=== PATIENT | male | born 1955 | race Caucasian/White ===

== ENCOUNTER → 2021-04-05 12:47 | Outpatient (BNVA) | payer SELFPAY | PROVIDERS: Visit Provider Nurse Practitioner | DX: R39.9 Unspecified symptoms and signs involving the genitourinary system (principal); N39.0 Urinary tract infection, site not specified | CPT/HCPCS: 81000 ==

== ENCOUNTER → 2021-04-25 11:20 | Outpatient (BNVA) | payer SELFPAY | PROVIDERS: Visit Provider Nurse Practitioner | DX: N39.0 Urinary tract infection, site not specified (principal) | CPT/HCPCS: 81000; 87077; 87086; 87184 ==

== ENCOUNTER → 2021-06-04 09:42 | Outpatient (BNVA) | payer SELFPAY | PROVIDERS: Visit Provider Family Medicine Adult Medicine | DX: R30.9 Painful micturition, unspecified (principal); N40.1 Benign prostatic hyperplasia with lower urinary tract symptoms; N13.8 Other obstructive and reflux uropathy; Z87.440 Personal history of urinary (tract) infections; Z00.00 Encounter for general adult medical examination without abnormal findings | CPT/HCPCS: 80053; 80061; 81003; 82306; 85025; 87077; 87086; 87184; G0103 ==

== ENCOUNTER → 2021-07-03 08:32 | Outpatient (BNVA) | payer SELFPAY | PROVIDERS: PCP Family Medicine Adult Medicine; Visit Provider Urology | DX: N40.1 Benign prostatic hyperplasia with lower urinary tract symptoms (principal); N13.8 Other obstructive and reflux uropathy | CPT/HCPCS: 81003 ==

== ENCOUNTER → 2021-08-16 10:53 | Outpatient (BNVA) | payer SELFPAY | PROVIDERS: PCP Family Medicine Adult Medicine; Visit Provider Urology | DX: N39.0 Urinary tract infection, site not specified (principal); R97.20 Elevated prostate specific antigen [PSA] | CPT/HCPCS: 81003; 84153 ==

== ENCOUNTER 2022-02-21 10:06 | Outpatient (CLI) | payer SELFPAY | END 2022-02-21 10:07 | disposition home or self-care (01) | PROVIDERS: PCP Family Medicine Adult Medicine; Visit Provider Urology | DX: R97.20 Elevated prostate specific antigen [PSA] (principal) | CPT/HCPCS: 81003; 84153 ==

== ENCOUNTER 2022-08-16 14:08 | Outpatient (CLI) | payer SELFPAY ==
[2022-08-16 15:06] LABS: Prostate Specific AG Urology 4.75 ng/mL (0-4)
== END 2022-08-16 14:09 | disposition home or self-care (01) ==
PROVIDERS: PCP Family Medicine Adult Medicine; Visit Provider Urology
DX: R97.20 Elevated prostate specific antigen [PSA] (principal)
CPT/HCPCS: 36415; 84153

== ENCOUNTER 2023-02-18 09:47 | Outpatient (CLI) | payer MEDICARE, SELFPAY | END 2023-02-18 09:48 | disposition home or self-care (01) | PROVIDERS: PCP Family Medicine Adult Medicine; Visit Provider Urology | DX: R97.20 Elevated prostate specific antigen [PSA] (principal) | CPT/HCPCS: 36415; 84153 ==

== ENCOUNTER 2023-04-16 07:47 | Outpatient (CLI) | payer MEDICARE, SELFPAY ==
--- NOTE | 2023-04-16 08:00 | MR_ITS ---
WS: [id number] MRI LEFT KNEE HISTORY: chronic left knee pain/weakness COMPARISON: None available. Anterior cruciate ligament: Increased T2 signal throughout the central ACL. Majority of the ACL fiber s are intact. Posterior cruciate ligament: Intact. Medial collateral ligament: Intact. Posterior lateral corner structures: Intact. Medial menisci: Horizontal tear posterior horn extends to the inferior articular surface. There is ad ditional surface fraying along the intra-articular surface of the posterior horn. Anterior horn is no rmal. Lateral meniscus: Horizontal tear in the posterior horn extends to the inferior articular surface. Th ere is additional increased signal throughout a large portion of the posterior horn consistent with a complex tear. Towards the meniscal root there is additional tear which extends to the superior artic ular surface. Anterior horn is normal. Extensor mechanism: Distal quadriceps tendon and patellar tendons are intact. Fluid and soft tissue: Small joint effusion. No Wills's cyst. Osseous and articular structures: Patellofemoral compartment: Normal. Medial compartment: Mild narrowing of the medial compartment. Surface fraying along the surface of th e cartilage along the weightbearing surface of the femoral condyle and tibial plateau. No marrow stephen a or fracture. Lateral compartment: Minimal narrowing. Mild chondromalacia. There is a focal area of chondromalacia along the weightbearing surface of the tibial plateau. No marrow edema or fracture. IMPRESSION: 1. Horizontal tear posterior horn medial meniscus. 2. Complex tear involving the posterior horn lateral meniscus. There is a horizontal tear extending t o the inferior tickler surface. Additional tear towards the meniscal root with extension to the super ior tickler surface. Large amount of abnormal signal throughout majority of the posterior meniscus. 3. intrasubstance degeneration throughout the ACL. Partial tear is not excluded in the central ligame nt. There is no full-thickness tear. 4. Mild narrowing of the medial and lateral compartments with mild diffuse chondromalacia.
== END 2023-04-16 07:48 | disposition home or self-care (01) ==
LOC: RAD 07:48
PROVIDERS: PCP Family Medicine Adult Medicine; Visit Provider Family Medicine Adult Medicine
DX: S83.272A Complex tear of lateral meniscus, current injury, left knee, initial encounter (principal); X58.XXXA Exposure to other specified factors, initial encounter; M94.262 Chondromalacia, left knee; G89.29 Other chronic pain; M19.90 Unspecified osteoarthritis, unspecified site; R53.1 Weakness
CPT/HCPCS: 73721

== ENCOUNTER → 2023-05-20 11:00 | Outpatient (BNVA) | payer MEDICARE, SELFPAY | PROVIDERS: PCP Family Medicine Adult Medicine; Referring Provider Family Medicine Adult Medicine; Visit Provider Student in an Organized Health Care Education/Training Program | DX: S83.207A Unspecified tear of unspecified meniscus, current injury, left knee, initial encounter; S83.282A Other tear of lateral meniscus, current injury, left knee, initial encounter; S83.512A Sprain of anterior cruciate ligament of left knee, initial encounter; X50.9XXA Other and unspecified overexertion or strenuous movements or postures, initial encounter | CPT/HCPCS: 73560; 73565; 99204 ==

== ENCOUNTER → 2023-06-17 08:09 | Outpatient (BNVA) | payer MEDICARE, SELFPAY | PROVIDERS: PCP Family Medicine Adult Medicine; Visit Provider Student in an Organized Health Care Education/Training Program | DX: S83.282A Other tear of lateral meniscus, current injury, left knee, initial encounter (principal); S83.512A Sprain of anterior cruciate ligament of left knee, initial encounter; S83.242A Other tear of medial meniscus, current injury, left knee, initial encounter; X58.XXXA Exposure to other specified factors, initial encounter | CPT/HCPCS: 99214 ==

== ENCOUNTER 2023-06-18 08:47 | Day surgery (SDC) | payer MEDICARE, SELFPAY ==
[2023-06-18] VITALS (9 sets, daily range): BP systolic 101–151; BP diastolic 52–75; PULSE 54–62; RESP 16–18; TEMP 36.1–36.2; O2SAT 95–99; BMI 25.1
--- NOTE | 2023-06-18 08:59 | W.PM.OPSUD ---
Surgery/Procedure H&P Update DATE OF PROCEDURE: June 18, 2023 DATE H&P PERFORMED: 06/17/23 H&P UPDATE INFORMATION: I have reviewed H&P completed within last 30 days, I have examined patient prior to procedure and No changes to prior documentation PREOP DIAGNOSIS: Left knee medial and lateral meniscus tears and partial ACL tear PRIMARY INDICATION FOR PROCEDURE: Left knee medial and lateral meniscus tears and partial ACL tear PLANNED PROCEDURE: Operation Date: 06/18/23 10:35 Proposed Procedures p Knee Arthroscopy w/partial Medial versus repair and partial Lateral Menisectomy versus repair & ACL debridement(Left) - Cain Cardona DO
[2023-06-18] MEDS: scopolamine 1.5 Patch 1 PATCH TRANSDERMA (09:17)
[2023-06-18] MEDS: ketorolac 30 mg/mL INJ IVP (09:17)
[2023-06-18] MEDS: acetaminophen 1,000 MG/100 ML PIGGYBACK 400 MG IV (09:18)
[2023-06-18] MEDS: sodium chloride 0.9% 1,000 ML 30 ML IV (09:23)
--- NOTE | 2023-06-18 09:52 | ANES.PREANE2 ---
Pre-Anesthetic Assessment Height/Weight: Height 1.78 m Weight 79.379 kg Temp Pulse Resp BP Pulse Ox O2 Del Method 97.0 F L 61 18 151/75 96 Room Air 06/18/23 08:58 06/18/23 08:58 06/18/23 08:58 06/18/23 09:17 06/18/23 08:58 06/18/23 09:34 Preop Diagnosis: Left knee medial and lateral meniscus tears and partial ACL tear Operation Date: 06/18/23 10:35 Proposed Procedures p Knee Arthroscopy w/partial Medial versus repair and partial Lateral Menisectomy versus repair & ACL debridement(Left) - Cain Cardona, Familial anesthetic complications: none Was Beta Adore taken within 24 hours: N/A Was Clonidine taken within 24 hours: N/A Last intake: Intake Last Liquid Date 06/17/23 Last Liquid Time 20:00 Last Solid Date 06/17/23 Last Solid Time 20:00 Social No alcohol and No tobacco Exam alert, oriented x 3, clear to auscultation bilaterally and regular rate & rhythm Airway Submandibular: within normal limits Cervical ROM: within normal limits Mallampati: Class II Dentition: caps BPH Musc/skel Osteoarthritis/DJD Neuropsych Headache Anesthetic Plan ASA status: 2 Anesthesia: General and Regional (specify below) (left adductor blk) Medications/Allergies Home Medications Medication Instructions Recorded Confirmed Last Taken Type acetaminophen 325 mg tablet 325 mg PO QID PRN t-7 06/04/21 06/17/23 06/15/23 History (Tylenol) meloxicam 7.5 mg tablet 7.5 mg PO DAILY arthritis #90 tabs 03/18/23 06/17/23 06/11/23 Rx tamsulosin 0.4 mg capsule 0.4 mg PO DAILY BPH #90 caps 03/18/23 06/17/23 06/17/23 Rx zolpidem 10 mg tablet 10 mg PO ONCE PRN insomnia #30 tabs 04/18/23 06/17/23 06/17/23 Rx aspirin 81 mg capsule 81 mg PO BID 14 days #28 caps 06/18/23 Unknown Rx hydrocodone 5 mg-acetaminophen 325 1 tab PO Q6H PRN pain 5 days #20 06/18/23 Unknown Rx mg tablet tabs ondansetron 4 mg disintegrating 4 mg PO Q8H PRN nausea and 06/18/23 Unknown Rx tablet vomiting 3 days #9 tabs Allergies Allergy/AdvReac Type Severity Reaction Status Date / Time No Known Allergies Allergy Verified 06/17/23 08:21 Current Medications Generic Name Dose Route Start Last Admin Trade Name Freq PRN Reason Stop Dose Admin Sodium Chloride 1,000 mls @ 30 mls/hr 06/18/23 09:00 06/18/23 09:23 Sodium Chloride 0.9% IV 06/19/23 08:59 30 mls/hr .Q24H MARIVEL Administration PFSH Anesthesia Medical History Tear of meniscus of left knee Insomnia Chronic pain of left knee Migraine Wills's cyst of knee BPH w urinary obs/LUTS Encounter for wellness examination Hx of recurrent urinary tract infection Osteoarthritis Family History Father , at age 94 Heart disease Mother , AT AGE 90 Stroke Social History Smoking and tobacco/nicotine status: never used tobacco/nicotine Alcohol intake: current Alcohol intake frequency: holidays/special occasions only Marital status: Current occupational status: retired Data Anesthesia Cardiac Studies: No Data to Display
[2023-06-18] MEDS: ceFAZolin 2,000 MG in sodium chloride 0.9% (plus) 50 ML 100 MG IV (10:27)
--- NOTE | 2023-06-18 11:00 | ANES.PROC ---
Anesthesia Procedures Procedure/Date: 06/18/23 Nerve Block ^: Nerve Block 1: Main Anesthesia: general anesthesia Time Out Performed: Yes Consent: requested by attending/covering physician, from patient, risks and benefits reviewed and patient agrees to proceed Nerve block location: adductor canal (left) Anesthesia monitors applied: pulse oximetry, EKG, BP cuff and oxygen Nerve block position: supine Anesthetic Used: ropivicaine 0.5% Amount of anesthesia used (mL): 20 Ultrasound used to: recognize landmarks Nerve Stimulator Used?: No Interscalene/Femoral BLK: 2 stimuplex 22 g needle used for position and inplane approach Injection: neg aspiration of heme Patient Tolerated Procedure: well Complications: none
--- NOTE | 2023-06-18 11:22 | P.BOP_ITS ---
Date of Procedure: 06/18/2022 Surgeon: Cain Cardona DO Land Development Manager(s): None Procedure(s) performed: Left knee diagnostic and surgical arthroscopy with partial medial meniscectomy Left knee diagnostic and surgical arthroscopy with partial lateral meniscectomy Left knee diagnostic and surgical arthroscopy with ACL debridement Left knee diagnostic and surgical arthroscopy with medial compartment chondroplasty Left knee diagnostic and surgical arthroscopy with extensive synovectomy (medial, lateral, patellofemoral compartments Findings of the procedure(s): Patient had medial and lateral meniscus tears as well as partial tearing of the ACL as well as chondromalacia noted procedure went as planned without complications Estimated blood loss: 2 mL Specimen(s) removed: None Post-operative diagnosis: Left knee medial and lateral meniscus tears as well as partial tear of the ACL and extensive synovitis and
--- NOTE | 2023-06-18 11:23 | P.OP_ITS ---
Operative Report Date of procedure: June 18, 2023 Surgeon: Cain Cardona DO Procedure: Preoperative diagnosis: Left knee medial and lateral meniscus tear as well as partial tearing ACL Post-op diagnosis: left?knee?medial meniscus tear Left knee lateral meniscus tear Left knee partial ACL tear left?knee?extensive synovitis left?knee?Medial chondromalacia Procedure done: left?knee?diagnostic and surgical arthroscopy partial medial meniscectomy Left knee diagnostic and surgical arthroscopy partial lateral meniscectomy left?knee?diagnostic and surgical arthroscopy with extensive synovectomy of the medial lateral and patellofemoral compartments left?knee?diagnostic and surgical arthroscopy with medial compartment chondroplasty Left knee diagnostic and surgical arthroscopy ACL debridement Surgeon: Cain Cardona DO Estimated blood loss: 5 Tourniquet: No tourniquet was used IV fluids: See anesthesia record Complications: None Findings: See operative report narrative Condition: stable Disposition: same day Brief History: Patient is a 67-year-old male with left?knee?pain.? Patient has failed conservative treatment who has been worked up for left??knee?pain in the outpatient setting. MRI findings consistent with tear of the medial and lateral meniscus. talked in the office about treatment options patient would like to proceed with a left?knee?diagnostic and surgical arthroscopy with partial medial and lateral meniscectomy and possible ACL debridement.? Patient understand the ins and outs of the procedure the risk benefits complication alternatives to treatment options.? Understanding risk of surgery they agree to proceed with surgical intervention.? Patient understand this may not provide patient with complete symptomatic relief of? pain as patient does have some underlying arthritis.? Understanding this and patient agree to proceed with surgical intervention all questions answered. Procedure: Patient seen and evaluated in the preoperative holding area.? Consent was reviewed and signed with patient.? Correct extremity was then marked.? Patient seen evaluated Anesthesia Department once cleared for surgery patient was taken back to the operative suite.? Patient was transported onto the OR table in supine position.? All bony prominences well-padded patient was appropriate secured to the bed.? Once appropriately anesthetized a nonsterile tourniquet was applied to the left thigh.? The left lower extremity was then prepped and draped in standard orthopedic fashion.? Final timeout performed.? Patient received appropriate preoperative antibiotics. Patient received local anesthetic of lidocaine with epinephrine into the joint as well as around the portal sites.? No tourniquet was inflated A standard 2 portal vertical incision diagnostic and surgical arthroscopy of the left?knee?was performed in standard fashion.? Small stab incision made in the inferolateral portal introduced trocar and arthroscope into the suprapatellar pouch.? Suprapatellar pouch was subsequently visualized and found to have significant synovitis but no loose bodies.? Patient had noticeable significant inflamed infrapatellar fat pad and thickening hypertrophic within the pa tellofemoral compartment.? ?The medial gutter was free of loose bodies I then introduced the arthroscope into the medial compartment.? Within the medial compartment I then established my inferior medial working portal utilizing spinal needle outside in technique.? Once established I then visualized our articular cartilage of the medial compartment with a valgus stress.? Patient was found to have grade 2-3 chondromalacia throughout the medial compartment.? Next I inspected the meniscus.? With an arthroscopic probe was utilized to visual? all aspects of the meniscus.? Meniscal root was found to be intact.? Meniscus was found to be torn at the body to posterior horn junction.? I then subsequently introduced a basket forceps as well as arthroscopic shaver to perform a partial medial meniscectomy to stable meniscal tissue and then utilized a thermal wand to anneal the edges.? Next, I then performed a synovectomy of the medial compartment.? Given patient's chondromalacia there was areas of unstable articular cartilage and I subsequently performed a chondroplasty with arthroscopic shaver and thermal wand.? This completed medial compartment work. Next a introduced the arthroscope to the intercondylar notch.? PCL was intact, partial tearing of the ACL was noted utilize arthroscopic shaver and thermal wand to debride the ACL.. patient had significant thickening of the infrapatellar fat pad spanning into the medial and lateral compartments.? I then performed an extensive synovectomy with the arthroscopic shaver of the patellofemoral medial and lateral compartments as well as the intercondylar notch. Advance the?scope?into the retrocruciate space and no loose bodies were found. Next I introduced the arthroscope into the lateral compartment the lateral compartment was found to have grade 2 chondromalacia.? Lateral meniscus was found complex tear posterior horn. Utilized arthroscopic shaver basket forceps and thermal wand to perform partial meniscectomy to stable meniscal tissue. The root was intact.? Given the grade II chondromalacia there is no unstable cartilage pieces to perform chondroplasty.? This completed my work of the lateral compartment and then performed a synovectomy of the lateral compartment.? Next of the arthroscope was placed into the lateral gutter and this was free of loose bodies.? Finally I reintroduced the arthroscope into the patellofemoral compartment.? The patellofemoral was found to have grade 2 chondromalacia of the patellofemoral compartment.? At this point I utilized arthroscopic shaver as well as thermal wand to perform extensive synovectomy of the patellofemoral compartment. This completed my work of the patellofemoral space.? I then switch my portal sites to the medial working portal.? Completed the rest of my synovectomy and the rest of my examination arthroscopy was normal. All fluid was suctioned from the joint.? ?All instruments were withdrawn.? Portal sites were closed with interrupted nylon suture.? portal sites were then covered with with Xeroform 4 x 4's ABD Curlex and Timothy wrap.? Patient was then subsequently awakened from anesthesia and taken to PACU in stable condition. Disposition: Patient taken to PACU in stable condition recovering well.? Will receive appropriate discharge structure as well as pain medication postoperatively as well as? DVT prophylaxis.we will have patient follow-up with us in the office in 2 weeks.? We will weightbearing as tolerated to the left lower extremity.? Patient understands and agrees with current plan.? All questions answered.
--- NOTE | 2023-06-18 16:30 | ANE.PACU2 ---
Inpatient post-anesthesia follow up: Airway intact: Yes Vital signs: Temperature 97.2 F Pulse Rate 54 Respiratory Rate 18 Blood Pressure 101/55 Pulse Oximetry 98 Oxygen Delivery Me thod Room Air Oxygen Flow Rate 6 Fraction of Inspir ed Oxygen Hydration adequate: Yes Nausea and vomiting: No Pain level: 2 Mental status: Baseline
== END 2023-06-18 12:30 | disposition home or self-care (01) ==
PROVIDERS: PCP Family Medicine Adult Medicine; Visit Provider Student in an Organized Health Care Education/Training Program
PROC: (CPT 29870; principal; 2023-06-18 10:25)
DX: S83.242A Other tear of medial meniscus, current injury, left knee, initial encounter (principal); S83.282A Other tear of lateral meniscus, current injury, left knee, initial encounter; S83.512A Sprain of anterior cruciate ligament of left knee, initial encounter; X58.XXXA Exposure to other specified factors, initial encounter; M65.9 Synovitis and tenosynovitis, unspecified; M94.262 Chondromalacia, left knee; M19.90 Unspecified osteoarthritis, unspecified site; N40.1 Benign prostatic hyperplasia with lower urinary tract symptoms; N13.8 Other obstructive and reflux uropathy
CPT/HCPCS: 29876; 29880; J0131; J0690; J1100; J1885; J2405; J2704; J2795; J3010; J7030

== ENCOUNTER → 2023-07-03 09:48 | Outpatient (BNVA) | payer MEDICARE, SELFPAY | PROVIDERS: PCP Family Medicine Adult Medicine; Visit Provider Physician Assistant | DX: Z98.890 Other specified postprocedural states (principal) | CPT/HCPCS: 99024 ==

== ENCOUNTER → 2023-07-08 13:25 | Outpatient (BNVA) | payer MEDICARE, SELFPAY | PROVIDERS: PCP Family Medicine Adult Medicine; Visit Provider Family Medicine Adult Medicine | DX: N40.1 Benign prostatic hyperplasia with lower urinary tract symptoms (principal); N13.8 Other obstructive and reflux uropathy; G43.909 Migraine, unspecified, not intractable, without status migrainosus; I10 Essential (primary) hypertension; R03.0 Elevated blood-pressure reading, without diagnosis of hypertension; R53.83 Other fatigue | CPT/HCPCS: 80053; 80061; 84403; 84443; 85025 ==

== ENCOUNTER → 2023-07-15 13:25 | Outpatient (BNVA) | payer MEDICARE, SELFPAY | PROVIDERS: PCP Family Medicine Adult Medicine; Visit Provider Physician Assistant | DX: M79.641 Pain in right hand; M79.642 Pain in left hand; M18.2 Bilateral post-traumatic osteoarthritis of first carpometacarpal joints | CPT/HCPCS: 20600; 73130; 99213; J1040; J3490 ==

== ENCOUNTER → 2023-08-06 08:17 | Outpatient (BNVA) | payer MEDICARE, SELFPAY | PROVIDERS: PCP Family Medicine Adult Medicine; Visit Provider Surgery | DX: Z12.11 Encounter for screening for malignant neoplasm of colon (principal); R10.9 Unspecified abdominal pain; K59.00 Constipation, unspecified | CPT/HCPCS: 99203 ==

== ENCOUNTER 2023-09-03 06:08 | Day surgery (SDC) | payer MEDICARE, SELFPAY ==
[2023-09-03 06:25] VITALS: BP 101/63; PULSE 65; RESP 18; TEMP 36.6; O2SAT 99; BMI 25.1
--- NOTE | 2023-09-03 06:30 | P.HPUD_ITS ---
Surgery/Procedure H&P Update DATE OF PROCEDURE: September 03, 2023 DATE H&P PERFORMED: 08/06/23 H&P UPDATE INFORMATION: I have reviewed H&P completed within last 30 days, I have examined patient prior to procedure, No changes to prior documentation and [place] is in [facility] [place] indicated PLANNED PROCEDURE: Operation Date: 09/03/23 07:15 Proposed Procedures p 49789 colon G0121 screen colon A risk Z12.11(Not Applicable) - John Balbuena MD
[2023-09-03] MEDS: sodium chloride 0.9% 1,000 ML 30 ML IV (06:37)
--- NOTE | 2023-09-03 06:55 | ANES.PREANE2 ---
Pre-Anesthetic Assessment Height/Weight: Height 1.78 m Weight 79.379 kg Temp Pulse Resp BP Pulse Ox O2 Del Method 97.8 F 65 18 101/63 99 Room Air 09/03/23 06:25 09/03/23 06:25 09/03/23 06:25 09/03/23 06:25 09/03/23 06:25 09/03/23 06:25 Operation Date: 09/03/23 07:15 Proposed Procedures p 24271 colon G0121 screen colon A risk Z12.11(Not Applicable) - John Balbuena MD Familial anesthetic complications: None Was Beta Adore taken within 24 hours: N/A Was Clonidine taken within 24 hours: N/A Last intake: Intake Last Liquid Date 09/02/23 Last Liquid Time 22:00 Last Solid Date 09/01/23 Last Solid Time 22:00 Social No alcohol and No tobacco Exam alert, oriented x 3, clear to auscultation bilaterally and regular rate & rhythm Airway Mallampati: Class I Dentition: partials Anesthetic Plan ASA status: 1 Anesthesia: MAC Risk of > 500 ml blood loss (7ml/kg in children): No Medications/Allergies Home Medications Medication Instructions Recorded Confirmed Last Taken Type meloxicam 7.5 mg tablet 7.5 mg PO DAILY arthritis #90 tabs 03/18/23 09/03/23 08/27/23 Rx tamsulosin 0.4 mg capsule 0.4 mg PO DAILY BPH #90 caps 03/18/23 09/03/23 09/01/23 Rx zolpidem 10 mg tablet 10 mg PO ONCE PRN insomnia #30 tabs 06/24/23 09/03/23 2 Days Ago Rx ~08/30/23 Allergies Allergy/AdvReac Type Severity Reaction Status Date / Time No Known Allergies Allergy Verified 09/03/23 06:24 Current Medications Generic Name Dose Route Start Last Admin Trade Name Freq PRN Reason Stop Dose Admin Sodium Chloride 1,000 mls @ 30 mls/hr 09/03/23 06:15 09/03/23 06:37 Sodium Chloride 0.9% IV 09/04/23 06:14 30 mls/hr .Q24H MARIVEL Administration PFSH Anesthesia Medical History Colon cancer screening Fatigue Elevated blood pressure reading Hypertension Tear of meniscus of left knee Insomnia Chronic pain of left knee Migraine Wills's cyst of knee BPH w urinary obs/LUTS Encounter for wellness examination Hx of recurrent urinary tract infection Osteoarthritis Family History Father , at age 94 Heart disease Mother , AT AGE 90 Stroke Social History Smoking and tobacco/nicotine status: never used tobacco/nicotine Alcohol intake: current Alcohol intake frequency: holidays/special occasions only Marital status: Current occupational status: retired Data Anesthesia Cardiac Studies: No Data to Display
[2023-09-03 08:03] VITALS: BP 110/56; PULSE 51; RESP 14; TEMP 36.1; O2SAT 100
[2023-09-03 08:10] VITALS: BP 116/69; PULSE 52; RESP 16; O2SAT 98
--- NOTE | 2023-09-03 08:40 | ANE.PACU2 ---
Inpatient post-anesthesia follow up: Airway intact: Yes Vital signs: Temperature 97.0 F Pulse Rate 52 Respiratory Rate 16 Blood Pressure 116/69 Pulse Oximetry 98 Oxygen Delivery Me thod Room Air Oxygen Flow Rate 3 Fraction of Inspir ed Oxygen Hydration adequate: Yes Nausea and vomiting: No Pain level: 1 Mental status: Baseline
== END 2023-09-03 08:40 | disposition home or self-care (01) ==
PROVIDERS: PCP Family Medicine Adult Medicine; Visit Provider Surgery
PROC: 0DJD8ZZ Inspection of Lower Intestinal Tract, Via Natural or Artificial Opening Endoscopic (ICD-10-PCS; CPT 45378; principal; 2023-09-03 07:15)
DX: Z12.11 Encounter for screening for malignant neoplasm of colon (principal); D12.8 Benign neoplasm of rectum; I10 Essential (primary) hypertension; N40.1 Benign prostatic hyperplasia with lower urinary tract symptoms; N13.8 Other obstructive and reflux uropathy
CPT/HCPCS: 45380; 45385; 88305; J2704; J7030

== ENCOUNTER → 2023-09-17 09:02 | Outpatient (BNVA) | payer MEDICARE, SELFPAY | PROVIDERS: PCP Family Medicine Adult Medicine; Visit Provider Surgery | DX: Z12.11 Encounter for screening for malignant neoplasm of colon (principal) | CPT/HCPCS: 99024; 99212 ==

== ENCOUNTER 2023-10-06 13:28 | Outpatient (CLI) | payer MEDICARE, SELFPAY | END 2023-10-06 13:29 | disposition home or self-care (01) | LOC: LAB 13:30 | PROVIDERS: PCP Family Medicine Adult Medicine; Visit Provider Urology | DX: R97.20 Elevated prostate specific antigen [PSA] (principal) | CPT/HCPCS: 36415; 84153 ==

== ENCOUNTER → 2023-10-21 09:44 | Outpatient (BNVA) | payer MEDICARE, SELFPAY | PROVIDERS: PCP Family Medicine Adult Medicine; Visit Provider Surgery | DX: K40.90 Unilateral inguinal hernia, without obstruction or gangrene, not specified as recurrent (principal) | CPT/HCPCS: 99214 ==

== ENCOUNTER 2023-11-17 08:20 | Day surgery (SDC) | payer MEDICARE, SELFPAY ==
[2023-11-17] VITALS (11 sets, daily range): BP systolic 107–143; BP diastolic 54–70; PULSE 56–65; RESP 12–18; TEMP 36.2–36.6; O2SAT 95–100; BMI 25.1
--- NOTE | 2023-11-17 08:58 | P.HPUD_ITS ---
Surgery/Procedure H&P Update DATE OF PROCEDURE: November 17, 2023 DATE H&P PERFORMED: 10/21/23 H&P UPDATE INFORMATION: I have reviewed H&P completed within last 30 days, I have examined patient prior to procedure, No changes to prior documentation and H&P is in [facility] [place] on date indicated PLANNED PROCEDURE: Operation Date: 11/17/23 09:55 Proposed Procedures p Laparoscopic Inguinal Hernia Repair with mesh, possible open(Right) - John Balbuena MD
[2023-11-17] MEDS: sodium chloride 0.9% 1,000 ML 30 ML IV (09:02)
--- NOTE | 2023-11-17 10:15 | ANES.PREANE2 ---
Pre-Anesthetic Assessment Height/Weight: Height 1.78 m Weight 79.379 kg Temp Pulse Resp BP Pulse Ox O2 Del Method 97.8 F 56 L 18 143/70 98 Room Air 11/17/23 08:40 11/17/23 08:40 11/17/23 08:40 11/17/23 08:40 11/17/23 08:40 11/17/23 08:40 Operation Date: 11/17/23 09:55 Proposed Procedures p Laparoscopic Inguinal Hernia Repair with mesh, possible open(Right) - John Balbuena MD Familial anesthetic complications: None Was Beta Adore taken within 24 hours: N/A Was Clonidine taken within 24 hours: N/A Last intake: Intake Last Liquid Date 11/16/23 Last Liquid Time 19:00 Last Solid Date 11/16/23 Last Solid Time 19:00 Social No alcohol and No tobacco Exam alert, oriented x 3, clear to auscultation bilaterally and regular rate & rhythm Airway Mallampati: Class II Dentition: caps and partials CV/HEM Hypertension Anesthetic Plan ASA status: 1 Anesthesia: General Risk of > 500 ml blood loss (7ml/kg in children): No Medications/Allergies Home Medications Medication Instructions Recorded Confirmed Last Taken Type meloxicam 7.5 mg tablet 7.5 mg PO DAILY arthritis #90 tabs 03/18/23 11/17/23 11/14/23 Rx tamsulosin 0.4 mg capsule 0.4 mg PO DAILY BPH #90 caps 03/18/23 11/17/23 11/16/23 Rx zolpidem 10 mg tablet 10 mg PO ONCE PRN insomnia #30 tabs 06/24/23 11/17/23 11/14/23 Rx Allergies Allergy/AdvReac Type Severity Reaction Status Date / Time No Known Allergies Allergy Verified 11/14/23 12:25 Current Medications Generic Name Dose Route Start Last Admin Trade Name Freq PRN Reason Stop Dose Admin Sodium Chloride 1,000 mls @ 30 mls/hr 11/17/23 08:30 11/17/23 09:02 Sodium Chloride 0.9% IV 11/18/23 08:29 30 mls/hr .Q24H MARIVEL Administration PFSH Anesthesia Medical History Inguinal hernia of right side without obstruction or gangrene Colon cancer screening Fatigue Elevated blood pressure reading Hypertension Tear of meniscus of left knee Insomnia Chronic pain of left knee Migraine Wills's cyst of knee BPH w urinary obs/LUTS Encounter for wellness examination Hx of recurrent urinary tract infection Osteoarthritis Family History Father , at age 94 Heart disease Mother , AT AGE 90 Stroke Social History Smoking and tobacco/nicotine status: never used tobacco/nicotine Alcohol intake: current Alcohol intake frequency: holidays/special occasions only Marital status: Current occupational status: retired Data Anesthesia Cardiac Studies: No Data to Display
[2023-11-17] MEDS: ceFAZolin 2,000 MG in sodium chloride 0.9% (plus) 50 ML 100 MG IV (11:17)
[2023-11-17] MEDS: BUPivacaine 0.25% INJ 10 mL INJECTION (12:03)
[2023-11-17] MEDS: lidocaine-epi 1% 20 mL INJ INJECTION (12:04)
--- NOTE | 2023-11-17 12:42 | P.OP_ITS ---
Operative Report Date of procedure: November 17, 2023 Pre-op diagnosis: Right inguinal hernia Post-op diagnosis: Same Post-op findings: Right inguinal hernia indirect, a small lipoma of the cord Procedure done: Laparoscopic repair of right inguinal hernia Implants: Large right-sided 3D max mesh Surgeon: John Balbuena MD Mexican Food Cook: MICHELLE OR Staff Estimated blood loss: 5 Complications: None apparent Brief History: 67-year-old male who presents to my office with a right inguinal hernia, after discussion of all risk and benefits as documented in my preop note with side to proceed with laparoscopic possible open repair. Procedure: Patient was brought into the OR, he was placed in a supine position. General anesthesia was given. The abdomen was prepped and draped in the usual sterile fashion. Timeout was conducted. 1.5 cm infraumbilical incision was made, the incision was deepened until the right rectus sheath was identified. The right rectus sheath was opened with electrocautery, the muscle was then retracted laterally giving access to the retrorectus space. A Spacemaker was advanced in the retrorectus space to the level of the pubic bone, this was inflated under direct visualization developing the preperitoneal space. Spacemaker was then replaced by a 12 mm balloon trocar. Additional 5 mm balloon trocars were placed in the suprapubic and infraumbilical positions. Then proceeded to develop the preperitoneal space, the pubic bone was completely exposed as well as Ty's, identified anatomic landmarks and then I proceeded with a lateral dissection of the space of Borgess, once the space was completely dissected I placed my attention to the cord structures and hernia sac. A large hernia sac was identified on the right side and was dissected from the cord structures and reduced. After reduction of the sac small lipoma of the cord was also then defied and reduced. Critical view of safety of the myopectineal orifice was achieved. A large side 3D max mesh was then inserted in the preperitoneal space and positioned against the abdominal wall covering the direct indirect and femoral spaces. This was fixed to the Ty's ligament with 1 tack. The space was desufflated under direct visualization ensuring that the mesh was located in an adequate position. Trocars were removed. The umbilical trocar site wound was closed in layers using #0 Vicryl to the anterior rectus sheath, #3-0 Vicryl for the subcutaneous tissue and then the skin of all the wounds were closed with 4 Monocryl and Dermabond was applied. At the end of the procedure all counts were correct, the patient tolerated well the procedure and was transferred to the PACU in stable condition.
[2023-11-17] MEDS: oxyCODONE 5 mg IR Tab/Cap PO (13:47)
--- NOTE | 2023-11-17 14:25 | ANE.PACU2 ---
Inpatient post-anesthesia follow up: Airway intact: Yes Vital signs: Temperature 97.2 F Pulse Rate 57 Respiratory Rate 16 Blood Pressure 117/61 Pulse Oximetry 95 Oxygen Delivery Me thod Room Air Oxygen Flow Rate 6 Fraction of Inspir ed Oxygen Hydration adequate: Yes Nausea and vomiting: No Pain level: 1 Mental status: Baseline
== END 2023-11-17 14:27 | disposition home or self-care (01) ==
PROVIDERS: PCP Family Medicine Adult Medicine; Visit Provider Surgery
PROC: (CPT 49650; principal; 2023-11-17 09:45)
DX: K40.90 Unilateral inguinal hernia, without obstruction or gangrene, not specified as recurrent (principal); D17.6 Benign lipomatous neoplasm of spermatic cord; I10 Essential (primary) hypertension; N40.1 Benign prostatic hyperplasia with lower urinary tract symptoms; N13.8 Other obstructive and reflux uropathy
CPT/HCPCS: 49505; 51702; C1781; J0690; J1100; J1885; J2405; J2704; J2710; J3010; J3490; J7030

== ENCOUNTER → 2023-12-03 10:12 | Outpatient (BNVA) | payer MEDICARE, SELFPAY | PROVIDERS: PCP Family Medicine Adult Medicine; Visit Provider Surgery | DX: K40.90 Unilateral inguinal hernia, without obstruction or gangrene, not specified as recurrent (principal); Z98.890 Other specified postprocedural states | CPT/HCPCS: 99024 ==

== ENCOUNTER 2024-05-27 16:20 | Outpatient (CLI) | payer MEDICARE, SELFPAY ==
[2024-05-27 17:26] LABS: Basophils % 0.5 %; Eosinophils # 0.2 10^3/uL (0.0-0.8); Eosinophils % 3.1 %; Hematocrit 41.3 % (37-53); Lymphocytes # 1.7 10^3/uL (0.8-4.8); Lymphocytes % 26.9 %; Mean Corpuscular HGB Conc 35.1 g/dL (30-55); Mean Corpuscular Hemoglobin 29.9 pg (27-33); Mean Corpuscular Volume 85.2 fl (82-101); Mean Platelet Volume 11.3 fL (7.4-10.4); Monocytes # 0.6 10^3/uL (0.2-0.9); Monocytes % 9.3 %; Neutrophils # 3.89 10^3/uL (1.8-7.7); Nucleated Red Blood Cells % 0 %; Platelet Count 171 10^3/cmm (157-399); Red Blood Count 4.85 10^6/uL (3.85-5.65); Red Cell Distribution Width 11.7 % (12.1-15.1); White Blood Count 6.47 10^3/uL (3.29-11.43)
[2024-05-27 18:52] LABS: 25 Hydroxy Vitamin D 50 ng/mL (30-100); Alanine Aminotransferase 18 U/L (0-41); Albumin Level 4.6 g/dL (3.5-5.2); Alkaline Phosphatase 55 U/L (40-130); Anion Gap 14.2 (5-19); Aspartate Amino Transferase 20 U/L (0-40); Blood Urea Nitrogen 15 mg/dL (8-23); Calcium 9.2 mg/dL (8.5-10.5); Carbon Dioxide 25 mmol/L (22-29); Chloride 107 mmol/L (98-107); Chol HDL Ratio 3.31 mg/dL (1.0-5.00); Cholesterol 149 mg/dL (0-200); Glomerular Filtration Rate 112.8 mL/min (90-130); Glucose 77 mg/dL (65-115); HDL Cholesterol 45 mg/dL (60-100); LDL Cholesterol Calculated 88 mg/dL (50-129); LDL HDL Ratio 1.96 RATIO (0.00-3.22); Osmolality Calculated 294 mOsm/kg (285-295); Potassium 4.2 mmol/L (3.5-5.1); Sodium 142 mmol/L (136-145); Thyroid Stimulating Hormone 1.15 uIU/mL (0.27-4.20); Total Bilirubin 0.6 mg/dL (0.15-1.2); Total Protein 6.6 g/dL (6.6-8.7); Triglycerides 79 mg/dL (0-150); Vitamin B12 491 pg/mL (232-1245)
[2024-05-27 21:56] LABS: Free T4 Free Thyroxine 1.14 ng/dL (0.82-1.77); Testosterone Total 362.6 ng/dL (193-740)
== END 2024-05-27 16:21 | disposition home or self-care (01) ==
PROVIDERS: Absent Provider Family Medicine; PCP Family Medicine; Visit Provider Urology
DX: F32.A Depression, unspecified (principal); R53.83 Other fatigue; G47.00 Insomnia, unspecified; G43.009 Migraine without aura, not intractable, without status migrainosus; M17.12 Unilateral primary osteoarthritis, left knee; N40.1 Benign prostatic hyperplasia with lower urinary tract symptoms; N13.8 Other obstructive and reflux uropathy; R03.0 Elevated blood-pressure reading, without diagnosis of hypertension; E55.9 Vitamin D deficiency, unspecified; R74.8 Abnormal levels of other serum enzymes
CPT/HCPCS: 36415; 80053; 80061; 82306; 82607; 84153; 84403; 84439; 84443; 85025

== ENCOUNTER 2024-05-31 07:35 | Outpatient (CLI) | payer MEDICARE, SELFPAY ==
--- NOTE | 2024-05-31 07:45 | US_ITS ---
WS: [id number] TESTICULAR ULTRASOUND HISTORY: Right testicular pain; on exam L cyst COMPARISON: None available. TECHNIQUE: Real-time and color Doppler imaging or utilized to perform a testicular ultrasound. Right testicle: 3.9 cm x 2.6 cm x 2.3 cm. Normal sized testicle. Coarse echogenicity throughout the testicle. There is no mass identified. Normal color Doppler is present throughout. Systolic and diastolic velocities are both present. No significant hydrocele. Right epididymis: Normal epididymis with no increased vascularity. Left testicle: 4.8 cm x 3.3 cm x 2.6 cm. Normal size testicle. Mild coarse echotexture. No mass identified. Normal color Doppler is present throughout. Systolic and diastolic velocities are both present. Small slightly complex hydrocele. Left epididymis: Small spermatocele measures 1.1 x 1.2 x 1.2 cm. Prominent LEFT pampiniform plexus but not considered significant or varicosities. No Valsalva maneuve r was performed. US/US scrotum [id number] IMPRESSION: 1. No testicular mass or torsion. 2. Small LEFT spermatocele. 3. Minimally complex, small LEFT hydrocele.
== END 2024-05-31 07:36 | disposition home or self-care (01) ==
LOC: RAD 07:35
PROVIDERS: PCP Family Medicine; Visit Provider Family Medicine
DX: N43.41 Spermatocele of epididymis, single (principal); N43.3 Hydrocele, unspecified; N50.811 Right testicular pain
CPT/HCPCS: 76870

== ENCOUNTER → 2024-09-14 13:40 | Outpatient (BNVA) | payer MEDICARE, SELFPAY | PROVIDERS: PCP Family Medicine; Visit Provider Student in an Organized Health Care Education/Training Program | DX: M18.0 Bilateral primary osteoarthritis of first carpometacarpal joints (principal) | CPT/HCPCS: 20600; 99213; J3301; J3490 ==

== ENCOUNTER → 2025-03-01 09:24 | Outpatient (BNVA) | payer MEDICARE, SELFPAY | PROVIDERS: PCP Family Medicine; Visit Provider Family Medicine | DX: E55.9 Vitamin D deficiency, unspecified (principal); Z11.59 Encounter for screening for other viral diseases | CPT/HCPCS: 82306; 86803 ==

== ENCOUNTER 2025-03-07 07:59 | Outpatient (CLI) | payer MEDICARE, SELFPAY ==
--- NOTE | 2025-03-07 08:45 | MR_ITS ---
WS: [id number] MRI RIGHT SHOULDER HISTORY: R shoulder pain COMPARISON: None available. TECHNIQUE: Multiplanar sequences of the shoulder joint are submitted. Severe AC joint arthritis. Narrowing of the joint with osteophytes and synovial thickening. Subchondral cyst in the distal clavicle. Small erosions involving the surfaces of the AC joint. Osteophyte encroachment upon the myotendinous portion of the supraspinatus. Small amount of fluid in the subdeltoid bursa. No os acromion. Biceps tendon remains in the bicipital groove. Mild narrowing of the glenohumeral joint. Subchondral cysts in the glenoid. Largest cyst in the superior glenoid measures 9.5 mm. Loss of cartilage around the humeral head with osteophytic ridging. No rotator cuff muscle atrophy or edema. Very small insertion site tear of the supraspinatus tendon. No tendon retraction. There is marked fraying along the articular and bursal surfaces of the distal supraspinatus tendon. Mild tendinopathy in the distal subscapularis tendon. Infraspinatus tendon is intact. Intrasubstance degeneration of the superior labrum but no definite tear is identified. MR/MR shoulder RT wo con* [id number] IMPRESSION: 1. Severe AC joint arthropathy with encroachment upon the myotendinous portion of the supraspinatus. 2. Small insertion site tear of the supraspinatus without retraction. 3. Additional marked fraying along the articular and bursal surfaces of the di stal supraspinatus tendon. 4. Moderate arthropathy at the glenohumeral joint. 5. Tendinopathy distal subscapularis tendon.
== END 2025-03-07 08:00 | disposition home or self-care (01) ==
LOC: RAD 08:01
PROVIDERS: PCP Family Medicine; Visit Provider Family Medicine
DX: M25.511 Pain in right shoulder (principal); G89.29 Other chronic pain; M25.811 Other specified joint disorders, right shoulder; M19.011 Primary osteoarthritis, right shoulder; M25.711 Osteophyte, right shoulder; M25.411 Effusion, right shoulder; M67.813 Other specified disorders of tendon, right shoulder
CPT/HCPCS: 73221

== ENCOUNTER → 2025-03-29 09:39 | Outpatient (BNVA) | payer MEDICARE, SELFPAY | PROVIDERS: PCP Family Medicine; Visit Provider Student in an Organized Health Care Education/Training Program | DX: M75.101 Unspecified rotator cuff tear or rupture of right shoulder, not specified as traumatic (principal); M75.41 Impingement syndrome of right shoulder; G56.01 Carpal tunnel syndrome, right upper limb; M19.011 Primary osteoarthritis, right shoulder; M75.21 Bicipital tendinitis, right shoulder | CPT/HCPCS: 73030; 99214 ==

== ENCOUNTER → 2025-04-05 12:14 | Outpatient (BNVA) | payer MEDICARE, SELFPAY | PROVIDERS: PCP Family Medicine; Referring Provider Student in an Organized Health Care Education/Training Program; Visit Provider Specialist | DX: G56.01 Carpal tunnel syndrome, right upper limb (principal); G56.21 Lesion of ulnar nerve, right upper limb | CPT/HCPCS: 95909 ==

== ENCOUNTER → 2025-05-04 10:11 | Outpatient (BNVA) | payer MEDICARE, SELFPAY | PROVIDERS: PCP Family Medicine; Visit Provider Student in an Organized Health Care Education/Training Program | DX: M75.101 Unspecified rotator cuff tear or rupture of right shoulder, not specified as traumatic (principal); M75.41 Impingement syndrome of right shoulder; G56.01 Carpal tunnel syndrome, right upper limb; M75.21 Bicipital tendinitis, right shoulder; M19.011 Primary osteoarthritis, right shoulder | CPT/HCPCS: 99214 ==

== ENCOUNTER 2025-05-26 12:22 | Day surgery (SDC) | payer MEDICARE, SELFPAY ==
[2025-05-26] VITALS (14 sets, daily range): BP systolic 116–166; BP diastolic 59–82; PULSE 51–67; RESP 14–23; TEMP 36.1–36.6; O2SAT 95–99; BMI 25.8
[2025-05-26] MEDS: acetaminophen 1,000 MG/100 ML PIGGYBACK 400 MG IV (13:05)
--- NOTE | 2025-05-26 13:11 | P.HPUD_ITS ---
Surgery/Procedure H&P Update DATE OF PROCEDURE: May 26, 2025 DATE H&P PERFORMED: 05/04/25 H&P UPDATE INFORMATION: I have reviewed H&P completed within last 30 days, I have examined patient prior to procedure, No changes to prior documentation and Risks and benefits of the procedure reviewed CHANGES TO PREVIOUS DOCUMENTATION: Patient seen eval in the preoperative area consent reviewed and signed with patient patient understands Anzemet's procedure the risk benefits complication alternative surgical nonsurgical treatment options. Understanding risk of surgery patient like to proceed with surgical invention for a right shoulder d iagnostic and surgical arthroscopy with subacromial decompression, AC joint resection, rotator cuff debridement versus repair, possible biceps tenotomy versus tenodesis. Patient understands and agrees with current plan. All questions answered. PREOP DIAGNOSIS: Right knee subacromial impingement, AC arthritis, rotator cuff tear, biceps PRIMARY INDICATION FOR PROCEDURE: Right knee subacromial impingement, AC arthritis, rotator cuff tear, biceps tendinitis PLANNED PROCEDURE: Operation Date: 05/26/25 15:20 Proposed Procedures p Arthroscopic Shoulder Subacromial Decomp(Right) - Cain Cardona DO s Distal Clavicle Resection AC Joint Resection(Right) - Cain Cardona DO s Rotator Cuff Repair - Arthroscopy debridement vs repair(Right) - DO kady Matias Tenotomy Upper Extremity Biceps Tenotomy vs Tenodesis(Right) - Cain Cadrona DO
--- NOTE | 2025-05-26 13:30 | ANES.PREANE2 ---
Pre-Anesthetic Assessment Height/Weight: Height 5 ft 10 in Weight 180 lb Temp Pulse Resp BP Pulse Ox O2 Del Method 97.4 F L 67 16 166/82 99 Room Air 05/26/25 12:43 05/26/25 12:43 05/26/25 12:43 05/26/25 12:43 05/26/25 12:43 05/26/25 12:50 Preop Diagnosis: Right knee subacromial impingement, AC arthritis, rotator cuff tear, biceps Operation Date: 05/26/25 15:20 Proposed Procedures p Arthroscopic Shoulder Subacromial Decomp(Right) - Cain Burnet, DO s Distal Clavicle Resection AC Joint Resection(Right) - Cain Burnet, DO s Rotator Cuff Repair - Arthroscopy debridement vs repair(Right) - Cain Davisatt, DO s Tenotomy Upper Extremity Biceps Tenotomy vs Tenodesis(Right) - Cain Davisatt, DO Was Beta Adore taken within 24 hours: N/A Was Clonidine taken within 24 hours: N/A Last intake: Intake Last Liquid Date 05/25/25 Last Liquid Time 21:00 Last Solid Date 05/25/25 Last Solid Time 19:00 Social No alcohol and No tobacco Exam alert, oriented x 3, clear to auscultation bilaterally and regular rate & rhythm Airway Submandibular: within normal limits Cervical ROM: within normal limits Mallampati: Class II Dentition: full Anesthetic Plan ASA status: 2 Anesthesia: General Other: No prior issues with anesthesia NPO since yesterday evening Denies any cardiac or pulmonary issues Patient has a current migraine that he has been struggling with for the past few days. States Tylenol has not helped. METs greater than 4 Plan for general anesthesia with preop nerve block Medications/Allergies Home Medications ?Medication ?Instructions ?Recorded ?Confirmed ?Last Taken ?Type tamsulosin 0.4 mg capsule 0.4 mg PO DAILY BPH #90 caps 05/27/24 05/25/25 05/26/25 Rx meloxicam 15 mg tablet 15 mg PO DAILY #90 tabs 11/29/24 05/25/25 05/21/25 07:00 Rx zolpidem 10 mg tablet 10 mg PO ONCE PRN insomnia #30 tabs 02/17/25 05/25/25 05/22/25 21:00 Rx Allergies Allergy/AdvReac Type Severity Reaction Status Date / Time No Known Allergies Allergy Verified 05/25/25 09:48 Current Medications Generic Name Dose Route Start Last Admin Trade Name Justice PRN Reason Stop Dose Admin Sodium Chloride 1,000 mls @ 30 mls/hr 05/26/25 12:45 05/26/25 13:06 Sodium Chloride 0.9% IV 05/27/25 12:44 30 mls/hr .Q24H MARIVEL Administration PFSH Anesthesia Medical History Osteoarthritis cervical spine Testicular pain, right Fatigue White coat syndrome without diagnosis of hypertension Insomnia failed trazodone; mirtazipine helps but makes him achey; zolpidem wears off Migraine can be 2 per week to 1 per 3 months; takes excedrin; has aura Wills's cyst of knee BPH w urinary obs/LUTS seeing DR. Valladares at [facility] Hx of recurrent urinary tract infection Osteoarthritis Surgical History History of prostate biopsy negative History of bilateral cataract extraction Hx of colonoscopy with polypectomy 3 tubular adenoma; repeat 5 yrs Hx of right inguinal hernia repair Hx of arthroscopy of left knee Family History Father , at age 94 Heart disease Mother , AT AGE 90 Stroke Sister Breast cancer Brother Cancer skin cancer Social History Smoking and tobacco/nicotine status: never used tobacco/nicotine Alcohol intake: current Alcohol intake frequency: holidays/special occasions only Substance/Drug Use: never Household members: spouse Marital status: Number of children: 2 Highest education level completed: High School Graduate Current occupational status: retired Previous occupational history: [email or web address]
--- NOTE | 2025-05-26 13:31 | ANES.PROC ---
Anesthesia Procedures Procedure/Date: 05/26/25 Right interscalene peripheral nerve block for postoperative pain control Nerve Block ^: Nerve Block 1: Main Anesthesia: other (100 mcg fentanyl) Time Out Performed: Yes Consent: requested by attending/covering physician and from patient Laterality: Right Nerve block location: interscalene Anesthesia monitors applied: pulse oximetry, EKG, BP cuff and oxygen Nerve block position: supine Anesthetic Used: ropivicaine 0.5% Amount of anesthesia used (mL): 30 Ultrasound used to: recognize landmarks Nerve Stimulator Used?: Yes Interscalene/Femoral BLK: other needle (pjunk 4inch) Injection: neg aspiration of heme Patient Tolerated Procedure: well Complications: none Additional Comments: Decadron 4 mg added to block
--- NOTE | 2025-05-26 13:37 | SUR.PREOP ---
13:25 RIGHT INTRASCALENE NERVE BLOCK PERFORMED BY Eva USING 30ml OF 0.5% ROPIVACAINE WITH DECADRON 4mg. PT ON POLICY ADVISER SHOWING SINUS BRADI, AND O2 AT 3L/M. TOLERATED PROCEDURE WELL.
[2025-05-26] MEDS: ceFAZolin 2,000 MG in sodium chloride 0.9% (plus) 50 ML 100 MG IV (13:40)
--- NOTE | 2025-05-26 15:46 | P.BOP_ITS ---
Date of Procedure: 05/26/2025 Surgeon: Cain Cardona DO School Bus Dispatcher(s): Natan Cardona PA-C Procedure(s) performed: Right shoulder diagnostic and surgical arthroscopy with rotator cuff repair (small) Right shoulder diagnostic and surgical arthroscopy with biceps tenodesis Right shoulder diagnostic and surgical arthroscopy with labral debridement Right shoulder diagnostic and surgical arthroscopy with subacromial decompression (acromioplasty/bursectomy) Right shoulder diagnostic and surgical arthroscopy with AC joint resection (distal clavicle excision) Findings of the procedure(s): Underwent procedure as planned without issues or complications taken to recovery stable condition Estimated blood loss: 10 mL Specimen(s) removed: None Post-operative diagnosis: Right shoulder rotator cuff tear, biceps tendinitis/SLAP tear, circumferential labral fraying, subacromial/rotator cuff impingement, AC joint arthritis
--- NOTE | 2025-05-26 15:47 | PM.PACU ---
PACU note Narrative: Patient is a 69-year-old male that just underwent a right shoulder arthroscopy with rotator cuff repair. Patient transferred to PACU in stable condition. Pain is well controlled. shoulder Dressing on , dry and in place. Patient's operative arm is in a shoulder immobilizer. Patient is awake and alert and able to respond to my questions accordingly. Patient's fingers are warm with good perfusion. Normal cap refill under 2 seconds. Unable to assess further range of motion in arm due to sling. Unable to assess sensation or motor due to residual block. Exam: awake Disposition: discharged
--- NOTE | 2025-05-26 15:53 | P.OP_ITS ---
Operative Report Date of procedure: May 26, 2025 Surgeon: Cain Cardona DO Irrigation Specialist: Natan Cardona PA-C: PA was necessary for assistance in this case with shoulder positioning to execute the procedure, assistance with instrumentation, as well as implant fixation when necessary, assist with wound closure and dressing application. Procedure: Preoperative diagnosis: right shoulder subacromial impingement, AC joint arthritis, rotator cuff tear, biceps tendinitis Post-op diagnosis: Right shoulder rotator cuff tear, biceps tendinitis/SLAP tear, circumferential labral fraying, subacromial/rotator cuff impingement, AC joint arthritis Procedure done: Right shoulder diagnostic and surgical arthroscopy with rotator cuff repair (small) Right shoulder diagnostic and surgical arthroscopy with biceps tenodesis Right shoulder diagnostic and surgical arthroscopy with labral debridement Right shoulder diagnostic and surgical arthroscopy with subacromial decompression (acromioplasty/bursectomy) Right shoulder diagnostic and surgical arthroscopy with AC joint resection (distal clavicle excision) Surgeon: Cain Cardona DO Estimated blood loss: 10mL IV fluids: 900mL Implants: Arthrex 4.75 swivel lock Arthrex scorpion and suture tape Arthrex loop and tack bicep tenodesis kit, 4.75 Complications: None Condition: stable Disposition: same day Brief History: Patient been seen and worked up in the outpatient setting for right shoulder pain.? Pt had an MRI which showed findings below.? Patient's failed conservative treatment and has weakness.? We talked about treatment options far as nonoperative and operative intervention.? We talked about risk benefits complication alternatives surgical nonsurgical treatment options.? Understanding risk of surgery he agrees to proceed with surgical intervention.? All questions have been answered at this time.? Patient elects proceed with surgery and consent obtained in preoperative holding area for right shoulder diagnostic and surgical arthroscopy procedure, AC joint resection, subacromial decompression, rotator cuff debridment vs repair, possible biceps tenotomy vs tenodesis MR/MR shoulder RT wo con* [id number] IMPRESSION: 1. Severe AC joint arthropathy with encroachment upon the myotendinous portion of the supraspinatus. 2. Small insertion site tear of the supraspinatus without retraction. 3. Additional marked fraying along the articular and bursal surfaces of the distal supraspinatus tendon. 4. Moderate arthropathy at the glenohumeral joint. 5. Tendinopathy distal subscapularis tendon. Procedure: Patient seen evaluated in the preoperative holding area.? Consent reviewed and signed with patient.? Once again reviewed patient's MRI results as well as? planned surgical intervention.? Correct extremity marked.? Patient seen evaluated by anesthesia department received regional anesthesia.? Once ready for surgery was taken back to the operative suite.? Patient then subsequently underwent anesthesia per the anesthesia department was transported onto the OR table.? Patient was then placed into a lateral decubitus position with a beanbag and was appropriately secured to the bed.? All bony prominences well-padded.? Patient then had the right upper extremity was then prepped and draped in standard orthopedic fashion.? Patient received appropriate preoperative antibiotics.? Final timeout performed. The right upper extremity was then held in hanging from traction utilizing sterile technique.? Next started with standard diagnostic and surgical arthrosc opy with posterior portal position introduced arthroscope into the glenohumeral joint.? Visualized the glenohumeral joint I then introduced a spinal needle within the rotator cuff interval to confirm appropriate anterior portal placement.? Once this was confirmed I then made my?small?incision and then introduced my arthroscopic shaver into the glenohumeral joint. After flushing the joint fluid, was clearly evident patient had biceps tendon tearing as well as Superior labral tear. Patient had appreciable unstable biceps anchor most pronounced in the superior labrum. Given there appears to be healthy intra-articular tendon plan was for an intra-articular biceps tenodesis at the superior portion as it enters the intertubercular groove. Thermal wand introduced into the rotator interval. I then release of the rotator interval to have appropriate visualization and the ability to perform biceps tenodesis. At this point I established a purple passport cannula which was introduced. Next I performed an Arthrex loop and tap biceps tenodesis. Passer was then made around the tendon luggage tag stitch around and then thru the tendon per Arthrex protocol, I then utilized a thermal wand to release the biceps tendon at the anchor to perform with tenotomy. I then loaded with suture onto an Arthrex 4.75 swivel lock suture anchor. A punch was then placed in appropriate position at the entry point into the intertubercular groove just superior to the subscapularis tendon. Punch was then introduced to the appropriate depth. The suture loaded on the swivel lock was then advanced held under appropriate tension and shoulder lock anchor was then advanced and had excellent fixation. Excess suture was then cut biceps tenodesis was complete. I then utilized a thermal wand to seal the edges of the superior labrum. Next I evaluated the subscapularis tendon which was intact and no evidence of tear. ?Next there was mild labral tearing at biceps anchor and anteriorly and posteriorly, ? I then subsequently utilized a a arthroscopic shaver and thermal wand to perform a labral debridement.? This point time I then visualized the glenohumeral joint.? The glenohumeral joint was found to have grade 2? chondromalacia throughout.? Axillary pouch was free of loose bodies from viewing the posterior portal.? Next a visualized the rotator cuff superiorly and there was found to be a?small?undersurface tearing of the supraspinatus tendon.? I utilized a spinal needle to herb this location.?? This completed my work within the glenohumeral joint all fluid was suctioned free of the joint.? ?Next I reintroduced the arthroscope posteriorly.? And went to the subacromial space.? I established my lateral working portal at the site of which my spinal needle was marking of the rotator cuff tear.? Thermal wand was then introduced laterally and then I subsequently performed extensive bursectomy of the subacromial space.? Patient had a large anterior bone spur.? At this point time I proceeded with my AC joint resection thermal wand was used and track to the anterior edge of the acromion and then tracked all the way to the AC joint.? Once identified the AC joint this was very arthritic in nature.? Thermal wand was placed anteriorly to establish appropriate plane for AC joint resection.? Once appropriate margins and anterior inferior and anterior capsule was released I then introduced arthroscopic shaver and a bur and performed AC joint resection of both the acromion to co-plane at the AC joint and a distal clavicle resection was then performed totaling 1 cm in size and was confirmed.? This completed my AC joint resection and I then introduced the arthroscopic shaver laterally while continuing to view posteriorly.? I then performed an acromioplasty to complete my subacromial decompression prior to fixing the rotator cuff tear.? Next the arthroscopic shaver was then used previous spinal needle spot that is marked the?small?hole in the rotator cuff this was consistent with a?small?full- thickness tear.? Given the?small?size this did not need a medial and lateral row configuration as result my plan was for a horizontal mattress stitch with a single lateral row anchor.? As result I loaded and Arthrex scorpion with fiber tape and subsequently.? A horizontal mattress purchase appropriately spaced to the?small?tear of the supraspinatus tendon.? At this point in time and then introduced a shaver and power rasp to debride the rotator cuff footprint and decorticate the footprint in preparation for repair, next I marked by swivel lock position.? Fiber tape was then loaded into a 4.75 swivel lock I then subsequently punched and then subsequently placement 4.75 swivel lock while maintaining appropriate tension and repair of rotator cuff and this was advanced with excellent fixation I then had a final confirmation of appropriate repair of the supraspinatus rotator cuff tendon tear.? Sutures were then cut with an arthroscopic suture cutter and subsequently evaluated the rotator cuff repair.? Repair was found to be satisfactory shoulder was taken through range of motion and the repair moved as a unit with no evidence of loss of fixation. ?I then switched the arthroscope to the lateral portal to confirm this tension- free repair.? I took the shoulder through range of motion and the rotator cuff repair was stable and moved as a unit. ?Next I then introduced the arthroscopic shaver posteriorly to complete my subacromial decompression appropriate complaining all the way up to the lateral edge of the acromion.? This completed the surgery.? All fluid was suctioned from the shoulder.? All instruments were removed.? The lateral incision was then closed with nylon stitches.? As well as the portal sites closed with portal nylon stitches.? Xeroform 4 x 4's ABD and tape was then applied to the right shoulder and was placed into a shoulder abduction pillow sling for rotator cuff repair.? Patient was then awakened from anesthesia and then taken back to PACU in stable condition.? Patient tolerated procedure without any issues. Disposition: Patient taken back in stable condition recovering well.? Dressings on in place clean dry and intact.? Will be nonweightbearing to the right upper extremity.? Follow rotator cuff repair protocol.? Patient to follow-up with ortho in the office in 2 weeks.? Patient will receive appropriate discharge instruction as well as pain medication postoperatively.? All questions answered.? We will contact the office for any questions or concerns.
--- NOTE | 2025-05-26 16:29 | SUR.PHASEII ---
INDIRECT WARM AIR APPLIED TO PT. FAMILY AT BEDSIDE. TOLERATED PO FLUIDS WELL. VENTILATING WELL.
== END 2025-05-26 18:30 | disposition home or self-care (01) ==
PROVIDERS: PCP Family Medicine; Visit Provider Student in an Organized Health Care Education/Training Program
PROC: (CPT 29826; principal; 2025-05-26 15:00)
PROC: (CPT 23120; 2025-05-26 15:00)
PROC: (CPT 29827; 2025-05-26 15:00)
PROC: (CPT 29827; 2025-05-26 15:00)
PROC: (CPT 29827; 2025-05-26 15:00)
DX: M75.41 Impingement syndrome of right shoulder (principal); M75.101 Unspecified rotator cuff tear or rupture of right shoulder, not specified as traumatic; M75.21 Bicipital tendinitis, right shoulder; S43.431A Superior glenoid labrum lesion of right shoulder, initial encounter; X58.XXXA Exposure to other specified factors, initial encounter; M19.011 Primary osteoarthritis, right shoulder
CPT/HCPCS: 29827; 29828; 29826; 29824; 64415; C1713; J0131; J0169; J0690; J1100; J1885; J2250; J2371; J2405; J2704; J2710; J3010; J3490; J7030; J9999

== ENCOUNTER → 2025-06-15 08:45 | Outpatient (BNVA) | payer MEDICARE, SELFPAY | PROVIDERS: PCP Family Medicine; Visit Provider Physician Assistant | DX: Z98.890 Other specified postprocedural states (principal) | CPT/HCPCS: 99024 ==